=== PATIENT | male | born 1970 | race Caucasian/White ===

== ENCOUNTER 2023-09-09 08:52 | Emergency (ER) | payer MEDICAID ==
[~2023-09-09] VITALS: Ht 162.6 cm; Wt 70.3 kg
[2023-09-09 08:52] VITALS: BP_SYST 115; PULSE 71; RESP 17; TEMP 97; O2SAT 100
[2023-09-09] MEDS ORDERED: IBUP-1969 PO (09:49)
[2023-09-09] MEDS ORDERED: HYDR-3917 PO (09:49)
[2023-09-09] MEDS ORDERED: CYCL10TA24 PO (09:49)
[2023-09-09] MEDS ORDERED: KETOROLAC TROMETHAMINE 60 MG/2 ML VIAL IM ONE (10:15)
[2023-09-09 11:04] VITALS: BP_SYST 115; PULSE 71; RESP 17; TEMP 97; O2SAT 100
== END 2023-09-09 11:02 | disposition home or self-care (01) ==
LOC: SED 08:52
DX: S16.1XXA Strain of muscle, fascia and tendon at neck level, initial encounter (principal); M54.12 Radiculopathy, cervical region; Z79.899 Other long term (current) drug therapy; X58.XXXA Exposure to other specified factors, initial encounter; Y93.89 Activity, other specified; Y92.89 Other specified places as the place of occurrence of the external cause; Y99.8 Other external cause status
CPT/HCPCS: 99284; 72040; 73030; 96372; J1885